=== PATIENT | male | born 1965 | race African-American/Black ===

== ENCOUNTER 2017-08-30 01:21 | Emergency (ER) | payer SELFPAY ==
[2017-08-30] MEDS: predniSONE 20 MG TABLET PO (02:20)
[2017-08-30] MEDS: DOXYCYCLINE HYCLATE 100 MG TABLET PO (02:20)
[2017-08-30] MEDS: HYDROcodone/APAP 5/325MG 1 TAB TABLET PO (02:21)
[2017-08-30] MEDS: KETOROLAC 60 MG/2 ML INJ. IM (02:21)
== END 2017-08-30 03:24 | disposition home or self-care (01) ==
LOC: ER 01:21
DX: T63.301A Toxic effect of unspecified spider venom, accidental (unintentional), initial encounter (principal); L03.115 Cellulitis of right lower limb; I10 Essential (primary) hypertension; Y92.89 Other specified places as the place of occurrence of the external cause
CPT/HCPCS: 96372; 99284; J1885; J7512